=== PATIENT | male | born 1950 | race Caucasian/White ===

== ENCOUNTER 2019-10-26 08:37 | Day surgery (SDC) | payer BC ==
[~2019-10-26 08:37] MED LIST: Lactated Ringers 1,000 ML IV SCH; Sodium Chloride 0.9% 10 ML SDV IV PRN; Sodium Chloride 0.9% 10 ML Syringe FLUSH PRN; Sodium Chloride 0.9% 2.5 ML Syringe FLUSH PRN; ceFAZolin 2 GM in Premix Bag 1 BAG IV ONE
[2019-10-26] MEDS ORDERED: Midazolam 1 MG/ML 2 ML SDV ONE (09:18)
[2019-10-26] MEDS ORDERED: Propofol 200 MG/20 ML SDV ONE (09:18)
[2019-10-26] MEDS ORDERED: fentaNYL 100 MCG/2 ML SDV ONE (09:18)
[2019-10-26] MEDS ORDERED: Ondansetron 4 MG/2 ML SDV ONE (09:20)
--- NOTE | 2019-10-26 09:21 | PCM.PREANE ---
Preanesthetic Assessment - Anesthesia/Transfusion/Family Hx Anesthesia History: Prior Anesthesia Without Reaction Family History of Anesthesia Reaction: No Transfusion History: No Prior Transfusion(s) - Review of Systems General: No Symptoms Pulmonary: No Symptoms Cardiovascular: No Symptoms Gastrointestinal: No Symptoms Neurological: No Symptoms Other: Reports: None - Physical Assessment NPO Status Date: 10/25/19 NPO Status Time: 18:00 Vital Signs: Last Vital Signs Temp 96.6 F 10/26/19 08:44 Pulse 76 10/26/19 08:44 Resp 18 10/26/19 08:44 BP 135/67 10/26/19 08:44 Pulse Ox 95 10/26/19 08:44 Height: 6 ft 1 in Weight: 99.79 kg ASA Class: 2 Mental Status: Alert & Oriented x3 Airway Class: Mallampati = 2 Dentition: Reports: Dentures (full upper and lower) ROM/Head Extension: Full Lungs: Clear to Auscultation, Normal Respiratory Effort Cardiovascular: Regular Rate, Regular Rhythm - Allergies Allergies/Adverse Reactions: Allergies Allergy/AdvReac Type Severity Reaction Status Date / Time No Known Allergies Allergy Verified 10/21/19 13:52 - Blood Blood Available: No - Anesthesia Plan Pre-Op Medication Ordered: None - Acknowledgements Anesthesia Type Planned: General Anesthesia Pt an Appropriate Candidate for the Planned Anesthesia: Yes Alternatives and Risks of Anesthesia Discussed w Pt/Guardian: Yes Pt/Guardian Understands and Agrees with Anesthesia Plan: Yes Additional Comments: PMH: mild COPD- has never used rescue inhaler, or sought medical attention for COPD, new hematuria, recent lumbar surgery with relief of chronic lower back sx PLAN: ga/lma PreAnesthesia Questionnaire HEENT History: Reports: Other (See Below) Other HEENT History: wears glasses, has upper and lower dentures Respiratory History: Reports: COPD Other Respiratory History: never uses rescue inhaler Genitourinary History: Reports: BPH Musculoskeletal History: Reports: Arthritis, Other (See Below) Other Musculoskeletal History: 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 Neurological History: Reports: Neuropathy, Peripheral, Other (See Below) Other Neuro History: degenerative disc disease Oncologic (Cancer) History: Reports: Bladder Other Oncologic History: recently diagnosed bladder tumor - Past Surgical History Head Surgeries/Procedures: Reports: None Neurological Surgical History: Reports: Laminectomy, Lumbar Spine Other Neurological Surgeries/Procedures: L2-3-4-5-S1 - SUBSTANCE USE Smoking Status *Q: Current Every Day Smoker Tobacco Use Within Last Twelve Months: Cigarettes Days Per Week of Alcohol Use: 7 Number of Drinks Per Day: 2 Total Drinks Per Week: 14 Recreational Drug Use History: No - HOME MEDS Home Medications: Home Meds Albuterol Sulfate [Proair Hfa] 2 puff INH QID PRN 10/21/19 [History] Glycopyrrolate/Formoterol Fum [Bevespi Aerosphere Inhaler] 2 puff INH BID [History] Naproxen Sodium [Aleve] 220 mg PO BEDTIME 10/21/19 [History] Tamsulosin HCl 0.4 mg PO BEDTIME 10/21/19 [History] - CURRENT (IN HOUSE) MEDS Current Meds: Current Medications Lactated Ringer's (Ringers, Lactated) 1,000 mls @ 100 mls/hr IV ASDIRECTED JONN Last Admin: 10/26/19 09:00 Dose: 100 mls/hr Sodium Chloride (Saline Flush) 10 ml FLUSH ASDIRECTED PRN PRN Reason: Keep Vein Open Sodium Chloride (Saline Flush) 2.5 ml FLUSH ASDIRECTED PRN PRN Reason: Keep Vein Open Sodium Chloride (Normal Saline) 10 ml IV ASDIRECTED PRN PRN Reason: IV Use Discontinued Medications Cefazolin Sodium/Dextrose 2 gm (/ Premix) 50 mls @ 100 mls/hr IV ONCALL ONE Stop: 10/26/19 00:30
[2019-10-26] MEDS ORDERED: ceFAZolin/Dextrose,Iso-Osmotic 2 GM/50 ML Duplex Bag IV ONE (09:42)
[2019-10-26] MEDS ORDERED: Metoclopramide 10 MG/2 ML SDV IVPUSH ONE (10:40)
[2019-10-26] MEDS ORDERED: fentaNYL 100 MCG/2 ML SDV IVPUSH PRN (10:40)
[2019-10-26] MEDS ORDERED: Ondansetron 4 MG/2 ML SDV IVPUSH ONE (10:40)
[2019-10-26] MEDS ORDERED: ALBUTEROL SULFATE INH PRN (11:04)
--- NOTE | 2019-10-26 11:52 | OR ---
SURGEON: Pasquale Chan M.D. DATE OF PROCEDURE: 10/26/2019 PREOPERATIVE DIAGNOSIS: Bladder tumor, 1.5 cm, right wall. POSTOPERATIVE DIAGNOSIS: Bladder tumor, 1.5 cm, right wall. OPERATION: TURBT. DESCRIPTION OF PROCEDURE: The patient was given general anesthesia. He was placed in dorsal lithotomy position, prepped and draped in sterile drapes. A 24-[place] resectoscope was introduced in the bladder without difficulty. The tumor was resected in its entirety. The base of the tumor was submitted separately. The resection was deep enough to warrant putting a catheter in for the next couple of days, so a 16-[place] Ehrr catheter was placed. The specimen was submitted in two parts, one is bladder tumor and the other one is base of bladder tumor. For the base, the cold cup biopsy was used to avoid coagulation artefacts. The patient tolerated the procedure well. The rest of bladder is clean. He will be instructed to take the catheter out in 2 days. He will come to the office in 3 months for cystoscopy. SAMIA / VIC /[id number]
--- NOTE | 2019-10-26 12:52 | PCM.POSTAN ---
POST ANESTHESIA ASSESSMENT - MENTAL STATUS Mental Status: Alert, Oriented - VITAL SIGNS Vital Signs: Last Vital Signs Temp 97.9 F 10/26/19 11:50 Pulse 87 10/26/19 12:15 Resp 16 10/26/19 12:15 BP 127/83 10/26/19 12:15 Pulse Ox 96 10/26/19 12:36 - RESPIRATORY Respiratory Status: Respiratory Rate WNL, Airway Patent, O2 Saturation Stable - CARDIOVASCULAR CV Status: Pulse Rate WNL, Blood Pressure Stable - GASTROINTESTINAL GI Status: No Symptoms - POST OP HYDRATION Hydration Status: Adequate & Stable
--- NOTE | 2019-10-26 12:53 | PCM48HPAN ---
Post Anesthesia Note - EVALUATION WITHIN 48HRS OF ANESTHETIC Vital Signs in Normal Range: Yes Patient Participated in Evaluation: Yes Respiratory Function Stable: Yes Airway Patent: Yes Cardiovascular Function Stable: Yes Hydration Status Stable: Yes Pain Control Satisfactory: Yes Nausea and Vomiting Control Satisfactory: Yes Mental Status Recovered: Yes Vital Signs: Last Vital Signs Temp 97.9 F 10/26/19 11:50 Pulse 87 10/26/19 12:15 Resp 16 10/26/19 12:15 BP 127/83 10/26/19 12:15 Pulse Ox 96 10/26/19 12:36
[2019-10-26] MEDS ORDERED: Tamsulosin 0.4 MG Cap.ER PO SCH (21:00)
[2019-10-26] MEDS ORDERED: Non-Formulary Medication 1 Each (Glycopyrrolate/Formoterol Fum [Bevespi Aerosphere Inhaler INH SCH (21:00)
[2019-10-26] MEDS ORDERED: Non-Formulary Medication 1 Each (Naproxen Sodium [Aleve] 220 MG) PO SCH (21:00)
== END 2019-10-26 12:53 | disposition home or self-care (01) ==
LOC: MW.SDS 08:37
PROVIDERS: ATTEND Urology
DX: C67.9 Malignant neoplasm of bladder, unspecified (principal); J44.9 Chronic obstructive pulmonary disease, unspecified; E78.00 Pure hypercholesterolemia, unspecified; G89.4 Chronic pain syndrome; M19.90 Unspecified osteoarthritis, unspecified site; Z87.891 Personal history of nicotine dependence; Z79.1 Long term (current) use of non-steroidal anti-inflammatories (NSAID); Z79.899 Other long term (current) drug therapy; Z79.51 Long term (current) use of inhaled steroids
CPT/HCPCS: 52234; J0690; J2001; J2250; J2405; J2704; J3010; J7120; 88305; 88307

== ENCOUNTER 2022-12-13 07:45 | Emergency (ER) | payer BC ==
[2022-12-13] MEDS ORDERED: Sodium Chloride 0.9% 2.5 ML Syringe FLUSH PRN (08:04)
[2022-12-13] MEDS ORDERED: Sodium Chloride 0.9% 10 ML Syringe FLUSH PRN (08:04)
[2022-12-13] MEDS ORDERED: Sodium Chloride 0.9% 20 ML SDV IV PRN (08:04)
[2022-12-13] MEDS ORDERED: Morphine 4 MG/ML Syringe IVPUSH ONE ×2 (08:05→09:26)
[2022-12-13 08:57] LABS: POTASSIUM,K 4.2 mmol/L (3.5-5.1)
== END 2022-12-13 11:29 ==
LOC: MW.ED 07:45
DX: S72.001A Fracture of unspecified part of neck of right femur, initial encounter for closed fracture (principal); J44.9 Chronic obstructive pulmonary disease, unspecified; N40.0 Benign prostatic hyperplasia without lower urinary tract symptoms; M19.90 Unspecified osteoarthritis, unspecified site; Z79.899 Other long term (current) drug therapy
CPT/HCPCS: 36415; 73502; 80053; 85027; 85610; 87635; 93005; 96374; 96376; 99285; J2270; J3490; 93010; 99284; U0002

== ENCOUNTER 2023-02-06 16:11 | Inpatient (IN) | payer BC ==
[2023-02-06] MEDS ORDERED: Sodium Chloride 0.9% 10 ML Syringe FLUSH PRN (17:01)
[2023-02-06] MEDS ORDERED: Sodium Chloride 0.9% 2.5 ML Syringe FLUSH PRN (17:01)
[2023-02-06 17:45] LABS: CARBON DIOXIDE,CO2 23.7 mmol/L (21.0-32.0); POTASSIUM,K 4.2 mmol/L (3.5-5.1)
[2023-02-06] MEDS ORDERED: Iopamidol 755 MG/ML 500 ML Multipack Bottle IVPUSH STA (18:33)
[2023-02-06] MEDS ORDERED: Furosemide 40 MG/4 ML VIAL IVPUSH ONE (18:52)
[2023-02-06 19:45] LABS: CORONAVIRUS COVID-19 NAA NEGATIVE (NEGATIVE); INFLUENZA A NAA NEGATIVE (NEGATIVE); INFLUENZA B NAA NEGATIVE (NEGATIVE); RESPIRATORY SYNCYTIAL VIR NAA NEGATIVE (NEGATIVE)
[2023-02-06] MEDS ORDERED: Melatonin 3 MG Tab PO PRN (21:50)
[2023-02-06] MEDS ORDERED: cefTRIAXone 1 GM in Sodium Chloride 0.9% 50 ML IV SCH (23:00)
[2023-02-06] MEDS ORDERED: Azithromycin 500 MG in Sodium Chloride 0.9% 250 ML IV SCH (23:00)
[2023-02-06] MEDS ORDERED: Albuterol 8 GM Inhaler INH PRN (23:40)
[2023-02-06] MEDS ORDERED: Gabapentin 300 MG Cap PO PRN (23:40)
[2023-02-07] MEDS: Heparin Sodium 5,000 Units/ML Vial SUBCUT SCH ×2 (00:04→06:56)
[2023-02-07] MEDS: Albuterol/Ipratropium 3.0-0.5 MG/3 ML Neb Soln NEB SCH ×5 (00:07→23:38)
[2023-02-07] MEDS: Azithromycin 500 MG in Sodium Chloride 0.9% 250 ML IV SCH (00:09)
[2023-02-07] MEDS ORDERED: cefTRIAXone 1 GM in Sodium Chloride 0.9% 50 ML IV SCH ×2 (01:00→23:00)
[2023-02-07] MEDS ORDERED: cefTRIAXone 1 GM Vial ONE (01:26)
[2023-02-07] MEDS ORDERED: Sodium Chloride 0.9% 50 ML ONE (01:26)
[2023-02-07 06:55] LABS: POTASSIUM,K 3.5 mmol/L (3.5-5.1)
[2023-02-07] MEDS: Furosemide 20 MG/2 ML VIAL IVPUSH SCH ×2 (08:17→20:32)
[2023-02-07] MEDS: Finasteride 5 MG Tab PO SCH (08:17)
[2023-02-07] MEDS: MOMETASONE INH SCH ×2 (08:24→20:32)
[2023-02-07] MEDS: FORMOTEROL INH SCH ×2 (08:24→20:32)
[2023-02-07] MEDS: Enoxaparin 40 MG/0.4 ML Syringe SUBCUT SCH (13:25)
[2023-02-07] MEDS ORDERED: Tamsulosin 0.4 MG Cap.ER PO SCH (21:00)
[2023-02-08] MEDS: Azithromycin 500 MG in Sodium Chloride 0.9% 250 ML IV SCH (01:03)
[2023-02-08] MEDS: Albuterol/Ipratropium 3.0-0.5 MG/3 ML Neb Soln NEB SCH ×2 (06:13→11:38)
[2023-02-08 07:44] LABS: CARBON DIOXIDE,CO2 26.8 mmol/L (21.0-32.0); POTASSIUM,K 3.4 mmol/L (3.5-5.1)
[2023-02-08 08:07] LABS: BORDETELLA PARAPERT IS1001 Not Detected (Not Detected)
[2023-02-08] MEDS: MOMETASONE INH SCH (09:50)
[2023-02-08] MEDS: FORMOTEROL INH SCH (09:50)
[2023-02-08] MEDS: Furosemide 20 MG/2 ML VIAL IVPUSH SCH (09:50)
[2023-02-08] MEDS: Finasteride 5 MG Tab PO SCH (09:50)
[2023-02-08] MEDS: Enoxaparin 40 MG/0.4 ML Syringe SUBCUT SCH (13:28)
== END 2023-02-08 14:20 | disposition home or self-care (01) | DRG 194 ==
LOC: MW.ED 16:11 → MW.MS 20:21 → OBSVTOIN 23:41 → MW.MS 02-07 08:50
PROVIDERS: ADMIT Internal Medicine; ATTEND Internal Medicine
DX: I50.31 Acute diastolic (congestive) heart failure (principal); Z96.641 Presence of right artificial hip joint; J18.9 Pneumonia, unspecified organism; J43.9 Emphysema, unspecified; N40.0 Benign prostatic hyperplasia without lower urinary tract symptoms; Z20.822 Contact with and (suspected) exposure to COVID-19; M19.90 Unspecified osteoarthritis, unspecified site; G62.9 Polyneuropathy, unspecified; Z98.890 Other specified postprocedural states; Z79.899 Other long term (current) drug therapy; Z79.51 Long term (current) use of inhaled steroids; Z87.891 Personal history of nicotine dependence
CPT/HCPCS: 0241U; 36415; 71275; 71275-26; 80048; 80053; 83880; 84145; 84484; 85025; 85610; 87486; 87581; 87633; 87798; 93005; 93010; 93306; 93971-26-RT; 93971-RT; 94640; 96374; 99221; 99231; 99238; 99284; 99285-25; A9270-GY; J0456; J0696; J1644; J1650; J1940; J3490; J7050; J7620-GY; Q9967

== ENCOUNTER 2023-11-20 20:38 | Emergency (ER) | payer MEDICARE ==
[2023-11-20] MEDS ORDERED: EPINEPHrine 1:10,000 1 MG/10 ML Syringe IVPUSH ONE (23:42)
[2023-11-20] MEDS ORDERED: Atropine 0.1 MG/ML 10 ML Syringe IVPUSH ONE (23:43)
[2023-11-20] MEDS ORDERED: Sodium Bicarbonate 8.4% 50 MEQ/50 ML Syringe IVPUSH STA (23:44)
[2023-11-20] MEDS ORDERED: Sodium Chloride 0.9% 1,000 ML IV STA ×2 (23:45→23:46)
== END 2023-11-20 21:35 | disposition expired ==
LOC: MW.ED 20:38
DX: I46.9 Cardiac arrest, cause unspecified (principal); J44.9 Chronic obstructive pulmonary disease, unspecified; Z79.899 Other long term (current) drug therapy
CPT/HCPCS: 31500; 92950; 96374; 99291; J0171; J0461; J3490